=== PATIENT | female | born 1970 | race Caucasian/White ===

== ENCOUNTER 2020-11-02 11:42 | Day surgery (SDC) | payer BC ==
[~2020-11-02] VITALS: Ht 166.4 cm; Wt 70.0 kg
[2020-11-02 12:15] VITALS: BP 139/84
[2020-11-02] MEDS ORDERED: DENIES (12:22)
[2020-11-02] MEDS ORDERED: CHLORHEXIDINE 15 ML UDC ONE (12:26)
[2020-11-02] MEDS ORDERED: LACTATED RINGERS 1,000 ML IV SCH (12:30)
[2020-11-02] MEDS ORDERED: CHLORHEXIDINE 15 ML UDC MM ONE (12:30)
[2020-11-02 13:15] LABS: HCG UR SG 1.026 (1.003-1.030)
[2020-11-02] MEDS ORDERED: BUPIVACAINE/PF 0.5% ONE (13:27)
[2020-11-02] MEDS ORDERED: MIDAZOLAM 1 MG/ML, 2ML ONE (13:31)
[2020-11-02] MEDS ORDERED: FENTANYL PF 100 MCG/2ML ONE ×2 (13:31→14:32)
[2020-11-02] MEDS ORDERED: PROPOFOL 10 MG/ML, 20ML ONE (13:37)
[2020-11-02] MEDS ORDERED: DEXAMETHASONE 4 MG/ML, 5ML ONE (13:37)
[2020-11-02] MEDS ORDERED: CEFAZOLIN 1,000 MG ONE (13:37)
[2020-11-02] MEDS ORDERED: ONDANSETRON 2MG/ML, 2ML ONE (13:37)
[2020-11-02] MEDS ORDERED: BUPIVACAINE/PF 0.5% INFIL ONE (14:13)
[2020-11-02] MEDS ORDERED: OXYcodone 5 MG/5 ML ORAL.SOL UDC PO PRN (14:30)
[2020-11-02] MEDS ORDERED: KETOROLAC 30 MG/1 ML IVPush PRN (14:30)
[2020-11-02] MEDS ORDERED: HYDROmorphone 1 MG/ML, 1ML INJ IVPush PRN (14:30)
[2020-11-02] MEDS ORDERED: PROMETHAZINE 25 MG/ML, 1ML IVPush PRN (14:30)
[2020-11-02] MEDS ORDERED: MEPERIDINE/PF 25MG/0.5ML IVPush PRN (14:30)
[2020-11-02] MEDS ORDERED: HYDROcodone/APAP 7.5-325MG/15ML UDC PO PRN (14:30)
[2020-11-02] MEDS ORDERED: OXYcodone 5 MG/5 ML ORAL.SOL UDC ONE (14:32)
[2020-11-02] MEDS ORDERED: KETOROLAC 30 MG/1 ML ONE (14:32)
[2020-11-02] MEDS: FENTANYL PF 100 MCG/2ML IV PRN ×2 (14:35→14:45)
== END 2020-11-02 16:45 | disposition home or self-care (01) ==
LOC: OUT 11:42
PROVIDERS: ATTEND Orthopaedic Surgery Hand Surgery
DX: S62.512A Displaced fracture of proximal phalanx of left thumb, initial encounter for closed fracture (principal); X58.XXXA Exposure to other specified factors, initial encounter; Y93.89 Activity, other specified; Y92.89 Other specified places as the place of occurrence of the external cause; Y99.8 Other external cause status; Z20.828 Contact with and (suspected) exposure to other viral communicable diseases; Z88.0 Allergy status to penicillin; Z88.1 Allergy status to other antibiotic agents; Z88.2 Allergy status to sulfonamides; Z91.048 Other nonmedicinal substance allergy status; Z79.899 Other long term (current) drug therapy; Z87.891 Personal history of nicotine dependence; Z72.89 Other problems related to lifestyle; Z98.890 Other specified postprocedural states
CPT/HCPCS: 26727; 73140; 81025; C1713; J1885; J2250; J3010; J7120; U0003; J0690; J1100; J2405; J2704